=== PATIENT | female | born 2000 | race Caucasian/White ===

== ENCOUNTER 2020-03-20 19:42 | Emergency (ER) | payer BC, SELFPAY ==
--- NOTE | 2020-03-20 19:44 | CTR_ITS ---
PROCEDURE INFORMATION: Exam: CT Head Without Contrast Exam date and time: 03/20/2020 7:45 PM Age: 19 years old Clinical indication: Injury or trauma; Injury history: Fall off horse; Altered mental status/memory loss; Other: Memory loss and confusion; Additional info: Head injury TECHNIQUE: Imaging protocol: Computed tomography of the head without contrast. Radiation optimization: All CT scans at this facility use at least one of these dose optimization techniques: automated exposure control; mA and/or kV adjustment per patient size (includes targeted exams where dose is matched to clinical indication); or iterative reconstruction. COMPARISON: No relevant prior studies available. RADIATION DOSE METRICS: Total DLP (mGy-cm): 826.26 FINDINGS: Brain: Normal. No hemorrhage. Unremarkable white matter. No mass effect. Ventricles: Normal. No ventriculomegaly. Bones/joints: Unremarkable. No acute fracture. Sinuses: Visualized sinuses are unremarkable. No fluid levels. Mastoid air cells: Visualized mastoid air cells are well aerated. Soft tissues: Unremarkable. CT/CT head wo con* [id number] IMPRESSION: No acute intracranial abnormality. Radiation Dose CTDIVOL = (mGy): DLP = 826.26 (mGy-cm)
[2020-03-20 20:41] VITALS: BP 142/86; PULSE 99; RESP 18; TEMP 37.2; O2SAT 100; BMI 24.1
--- NOTE | 2020-03-20 20:58 | ED_ITS ---
HPI - Head Injury General: Chief complaint: Head Injury Stated complaint: fell off horse/hit head Time Seen by Provider: 03/20/20 20:58 Source: patient Mode of arrival: ambulatory Limitations: no limitations Review of Systems General: Reports: 10 or more systems reviewed and unremarkable except in HPI and below Neuro: Reports: headache(s) Physical Exam Const: COMMON NORMALS: no acute distress and patient oriented x3 GENERAL APPEARANCE: cooperative HENMT: COMMON NORMALS: normocephalic, TM's normal bilaterally and Normal external nose present HEAD & SCALP: normal to inspection and normocephalic NOSE: Normal external nose present TYMPANIC MEMBRANE: TM's normal bilaterally MOUTH: Normal oral and palatal mucosa present THROAT: posterior oropharynx normal Eye: GENERAL EYE: appearance normal, both eyes and all related structures Neck/C-Spine: COMMON NORMALS: full ROM Chest: COMMONS NORMALS: normal inspection of the chest Resp: COMMON NORMALS: normal respiratory effort EFFORT & INSPECTION: Yes able to speak in complete sentences Cardio: COMMON NORMALS: regular rate and regular rhythm RATE: regular rate RHYTHM: regular rhythm GI: COMMON NORMALS: non-tender : COMMON NORMALS: Yes no CVA tenderness BLADDER/KIDNEY EXAM: Yes no CVA tenderness Back/Pelvis: COMMON NORMALS: no CVA tenderness and thoracic and lumbar spine normal to inspection Extremity: COMMON NORMALS: normal to inspection Neuro: COMMON NORMALS: patient oriented x3 and moves all extremities Psych: COMMON NORMALS: mental status grossly normal and cooperative Skin: COMMON NORMALS: no rashes or lesions noted GENERAL SKIN EXAM: no rashes or lesions noted Course Vital Signs: Vital signs: Vital Signs Temperature 98.9 F 03/20/20 20:41 Pulse Rate 99 03/20/20 20:41 Respiratory Rate 18 03/20/20 20:41 Blood Pressure 142/86 03/20/20 20:41 Pulse Oximetry 100 03/20/20 20:41 MDM - Head Injury MDM Narrative: Medical decision making narrative: Patient was thrown from a horse hitting her head against the ground. Patient has some short-term memory loss. Patient appears well. Patient was appropriate and answering questions without difficulty. Exam notes a small contusion to the occipital area of the scalp. Pupils are equal and reactive. Abdomen soft nontender. Patient moves all extremities well. Patient moves neck without any difficulty. Differential diagnosis includes but not limited to intracranial bleeding, concussion, closed head injury, skull fracture. CT scan of the head noted no intracranial bleeding or fracture. Reviewed exam with patient and mother reports understanding. Reviewed post visit care and instructions with reported understanding from mother. Discharge Plan Discharge Patient Disposition: Home, Self-Care Clinical Impression: Concussion without loss of consciousness Qualifiers: Encounter type: initial encounter Qualified Code(s): S06.0X0A - Concussion without loss of consciousness, initial encounter Condition: Stable Discharge Orders: Discharge Order (Routine); Ordered 03/20/20 Ordered By: Ignacio Hennessy Discharge Diet: Usual diet Discharge Activity: Limit activity as instructed Patient Instructions: Minor Head Injury (ED) Activity Restrictions/Additional Instructions: Limit activity for the next 24 to 48 hours. Increase activity as tolerated. Drink plenty of water. Use acetaminophen or ibuprofen for pain. Return to the ER for worsening symptoms, persistent vomiting, or uncontrolled headache. Follow-up with primary care in 1 week as needed. Coding Level of Care Code ED Promotion Specialist for Doyle Hernandez Exam Comprehensive
--- NOTE | 2020-03-20 21:23 | PC.NURSE ---
Patient was riding a horse bareback and accidentally slid off and hit her head and her bottom on the ground.
[2020-03-20 21:25] VITALS: BP 123/83; PULSE 85; RESP 16; O2SAT 98
[2020-03-20 21:28] VITALS: BP 133/87; PULSE 89; RESP 15; O2SAT 98
== END 2020-03-20 21:28 | disposition home or self-care (01) ==
LOC: ER 03-21 00:50
PROVIDERS: Emergency Provider Nurse Practitioner Family
DX: S06.0X0A Concussion without loss of consciousness, initial encounter (principal); V80.010A Animal-rider injured by fall from or being thrown from horse in noncollision accident, initial encounter
CPT/HCPCS: 12345; 70450; 99281; 99282